=== PATIENT | male | born 1950 | race Caucasian/White ===

== ENCOUNTER 2017-06-05 15:37 | Outpatient (CLI) | payer MEDICARE ==
--- NOTE | 2017-06-06 08:14 | MRI ---
MRI OF LEFT FOOT AND ANKLE PERFORMED WITHOUT CONTRAST ENHANCEMENT: Date: 06/05/17 HISTORY: Lateral foot pain. This examination was tailored for more the mid and hindfoot region. FINDINGS: The Achilles tendon is fairly normal in appearance. There are edema changes associated with Kager's f at. The posterior tibialis and flexor digitorum longus tendon show trace tenosynovitis change. Flexor vidal lucis longus tendon is unremarkable. There is evidence of some muscle strain involving the flexor vidal lucis muscle. There is a split tear of the peroneus brevis tendon. Peroneus longus tendon shows some tenosynovitis change. The os for the peroneus longus tendon is in a fairly appropriate position at the calcaneal cu boid joint. There is evidence of some muscle strain involving the peroneus longus muscle. Sinus tarsi region appears unremarkable. The plantar fascia is intact. Lisfranc ligament is intact and the spring ligament complex appears unremarkable. No evidence of any osteochondral lesion of the talar dome. Ligaments of the ankle appear intact. IMPRESSION: 1. Peroneus brevis split tear. 2. Mild muscle edema change associated with the flexor hallucis and peroneus longus muscles. There i s also some edema change in the region of Kager's fat. POS: [facility]
== END 2017-06-05 15:38 | disposition home or self-care (01) ==
LOC: MRI 15:37
PROVIDERS: ATTEND Podiatrist
DX: S96.812A Strain of other specified muscles and tendons at ankle and foot level, left foot, initial encounter (principal); R60.0 Localized edema

== ENCOUNTER 2017-08-16 12:29 | Outpatient (CLI) | payer MEDICARE ==
[~2017-08-16 12:29] MED LIST: ISOVUE-370 76%-LOCM 1 ML ONE
== END 2017-08-16 12:30 | disposition home or self-care (01) ==
LOC: BICCT 12:29
PROVIDERS: ATTEND Internal Medicine
DX: R10.13 Epigastric pain (principal); N28.1 Cyst of kidney, acquired; N40.0 Benign prostatic hyperplasia without lower urinary tract symptoms
CPT/HCPCS: 74177